=== PATIENT | male | born 1965 | race Caucasian/White ===

== ENCOUNTER 2019-12-26 15:13 | Emergency (ER) | payer BC, OTHER ==
[~2019-12-26] VITALS: Ht 170.2 cm; Wt 89.3 kg
[2019-12-26] MEDS ORDERED: LORazepam 1MG TABLET ONE ×2 (15:45→17:07)
[2019-12-26] MEDS ORDERED: LORazepam 1MG TABLET PO ONE ×2 (16:00→16:30)
[2019-12-26] MEDS ORDERED: SERTRALINE 50MG TABLET PO ONE (17:00)
[2019-12-26 17:02] LABS: BASOPHILS # (AUTO) 0.04 x10^3/uL (0-0.1); BASOPHILS % (AUTO) 1 % (0-1); EOSINOPHILS # (AUTO) 0.09 x10^3/uL (0-0.4); EOSINOPHILS % (AUTO) 1 % (1-7); LYMPHOCYTES # (AUTO) 2.72 x10^3/uL (1-3.4); LYMPHOCYTES % (AUTO) 31 % (22-44); MD NO; MEAN CORPUSCULAR HEMOGLOBIN 32.7 pg (27.5-34.5); MEAN CORPUSCULAR HGB CONC 34.6 g/dL (33.2-36.2); MEAN CORPUSCULAR VOLUME 94.4 fL (81-97); MEAN PLATELET VOLUME 7.6 fL (7.4-10.4); MONOCYTES # (AUTO) 0.56 x10^3/uL (0.2-0.8); MONOCYTES % (AUTO) 6 % (2-9); NEUTROPHILS # (AUTO) 5.34 x10^3/uL (1.8-6.8); NEUTROPHILS % (AUTO) 61 % (42-75); PLATELET COUNT 318 x10^3/uL (130-400); RED BLOOD COUNT 4.65 x10^6/uL (4.38-5.82); RED CELL DISTRIBUTION WIDTH 12.7 % (9.4-14.8)
[2019-12-26] MEDS ORDERED: SERTRALINE 50MG TABLET ONE (17:07)
[2019-12-26 17:14] LABS: ALANINE AMINOTRANSFERASE 49 U/L (12-78); ALBUMIN 3.9 g/dL (3.4-5.0); ANION GAP 6 mmol/L (5-15); CALCIUM 8.6 mg/dL (8.5-10.1); CHLORIDE 109 mmol/L (98-107)
[2019-12-26 17:18] LABS: ALKALINE PHOSPHATASE 87 U/L (45-117); BILIRUBIN,TOTAL 0.5 mg/dL (0.2-1.0); CREATININE 1.02 mg/dL (0.7-1.3); TOTAL PROTEIN 7.7 g/dL (6.4-8.2)
--- NOTE | 2019-12-26 17:18 | NUR ---
TASK RN: PT CALM AND COOPERATIVE. ATTEMPT TO MEDICATE PT. PT WITH QUESTIONS ABOUT MEDS. DISCUSSED WITH DR MAC. LILY SEGOVIA, PRESCRIBED ATARAX AND ZOLOFT. PT RECEIVED 1MG ATIVAN APPROX [id number]. NOT TO RECEIVE AN ADDITIONAL DOSE PER DR MAC.
[2019-12-26 17:19] LABS: SALICYLATE LEVEL < 1.7 mg/dL (2.8-20.0)
[2019-12-26 18:07] VITALS: BP 124/54
== END 2019-12-26 18:09 | disposition home or self-care (01) ==
LOC: ED 17:55
DX: F32.9 Major depressive disorder, single episode, unspecified (principal); F41.9 Anxiety disorder, unspecified; R45.851 Suicidal ideations
CPT/HCPCS: 36415; 80053; 80307; 85025; 99284; Q0177

== ENCOUNTER 2021-03-03 07:53 | Emergency (ER) | payer SELFPAY ==
[~2021-03-03] VITALS: Ht 170.2 cm; Wt 81.7 kg
--- NOTE | 2021-03-03 08:06 | NUR ---
PT AMBULATORY TO ROOM FROM TRIAGE, CHANGED INTO GOWN. ALL MONITORS IN PLACE. BED IN LOWEST POSITION. BED RAILS UP X2. PT C/O DETOX WITH N/V/DT. PT STATES NO ETOH SINCE 1600 YESTERDAY. PT STATES HE USUALLY DRINKS 1 PINT OR MORE OF VODKA/DAY. PT SINUS TACH ON MONITOR OTHERWISE VSS.
--- NOTE | 2021-03-03 08:24 | NUR ---
PA AT BS
[2021-03-03] MEDS ORDERED: LORazepam 2 MG/ML, 1ML IVPush PRN (08:30)
[2021-03-03] MEDS ORDERED: SODIUM CHLORIDE 0.9% 1,000ML IVBOLUS ONE (08:30)
[2021-03-03] MEDS ORDERED: ONDANSETRON 2MG/ML, 2ML IVPush ONE (08:30)
[2021-03-03] MEDS ORDERED: ONDANSETRON 2MG/ML, 2ML ONE (08:30)
[2021-03-03] MEDS ORDERED: LORazepam 2 MG/ML, 1ML ONE (08:31)
[2021-03-03] MEDS ORDERED: FAMOTIDINE 20 MG/2 ML ONE (08:43)
--- NOTE | 2021-03-03 08:48 | NUR ---
PIV PLACED, LABS DRAWN, PT MEDICATED PER EMAR. PT STATES HE IS FEELING A LITTLE BETTER. NADN/VSS. CALL LIGHT WITHIN REACH
[2021-03-03 08:55] LABS: BASOPHILS % (AUTO) 3 % (0-1); EOSINOPHILS % (AUTO) 1 % (1-7); LYMPHOCYTES % (AUTO) 33 % (22-44); MEAN CORPUSCULAR HEMOGLOBIN 35.2 pg (27.5-34.5); MEAN CORPUSCULAR HGB CONC 35.3 g/dL (33.2-36.2); MEAN PLATELET VOLUME 7.5 fL (7.4-10.4); MONOCYTES % (AUTO) 10 % (2-9); NEUTROPHILS % (AUTO) 53 % (42-75); PLATELET COUNT 220 x10^3/uL (130-400); RED BLOOD COUNT 4.56 x10^6/uL (4.38-5.82); RED CELL DISTRIBUTION WIDTH 14.3 % (9.4-14.8)
[2021-03-03 08:59] LABS: ALANINE AMINOTRANSFERASE 288 U/L (12-78); ALBUMIN 3.9 g/dL (3.4-5.0); ANION GAP 15 mmol/L (5-15); CALCIUM 9.1 mg/dL (8.5-10.1); CHLORIDE 107 mmol/L (98-107); CREATININE 0.89 mg/dL (0.7-1.3)
[2021-03-03] MEDS ORDERED: THIAMINE 100 MG in SODIUM CHLORIDE 0.9% 50 ML IVPB ONE (09:00)
[2021-03-03] MEDS ORDERED: FAMOTIDINE 20 MG/2 ML IVPush ONE (09:00)
[2021-03-03 09:01] LABS: ALKALINE PHOSPHATASE 142 U/L (45-117); TOTAL PROTEIN 8.1 g/dL (6.4-8.2)
[2021-03-03] MEDS ORDERED: D5%-0.45% NACL 1,000 ML IV SCH (09:30)
--- NOTE | 2021-03-03 10:11 | NUR ---
PT RESTING ON GURNEY ON HIS PHONE, AALIYAHN/ANIYAHS. CALL LIGHT WITHIN REACH. BED IN LOWEST POSITION, BED RAILS UP X2
[2021-03-03] MEDS ORDERED: POTASSIUM CHLORIDE 20 MEQ TAB.ER.PRT PO ONE (10:30)
[2021-03-03] MEDS ORDERED: POTASSIUM CHLORIDE 20 MEQ TAB.ER.PRT ONE (10:33)
[2021-03-03] MEDS ORDERED: KETOROLAC 30 MG/1 ML ONE (10:49)
[2021-03-03] MEDS ORDERED: KETOROLAC 30 MG/1 ML IVPush ONE (11:00)
--- NOTE | 2021-03-03 11:30 | NUR ---
PT RESTING ON [place] ON HIS PHONE AND WATCHING TV. NADN/VSS. CALL LIGHT WITHIN REACH
[2021-03-03] MEDS ORDERED: CHLORDIAZEPOXIDE 25 MG CAPSULE PO PRN (12:00)
[2021-03-03 12:22] VITALS: BP 144/93
--- NOTE | 2021-03-03 12:57 | NUR ---
Patient given discharge instructions and RX, they have confirmed that they understand the instructions. Patient ambulatory with steady gait.
== END 2021-03-03 12:59 | disposition home or self-care (01) ==
LOC: ED 10:25
DX: F10.139 Alcohol abuse with withdrawal, unspecified (principal); Y90.0 Blood alcohol level of less than 20 mg/100 ml; R45.4 Irritability and anger; R00.0 Tachycardia, unspecified
CPT/HCPCS: 36415; 80053; 80320; 83690; 85025; 93005; 96361; 96365; 96375; 99284; J1885; J2060; J2405; J3411; J7030; G0480